=== PATIENT | male | born 2000 | race Caucasian/White ===

== ENCOUNTER 2022-11-05 11:19 | Emergency (ER) | payer OTHER, SELFPAY ==
[2022-11-05 11:21] VITALS: BP 137/88; PULSE 78; RESP 16; TEMP 36.7; O2SAT 100
[2022-11-05 11:49] LABS: Basophils Absolute Auto 0.1 K/mm3 (0.0-0.1); Basophils Percent Auto 0.9 % (0.2-1.2); Eosinophils Absolute Auto 0.1 K/mm3 (0-0.3); Eosinophils Percent Auto 1.1 % (0-4.4); Hematocrit 43.3 % (42.0-52.0); Hemoglobin 14.8 g/dL (14.0-18.0); Immature Granulocyte Absolute 0.01 K/mm3 (0.00-0.031); Immature Granulocyte Percent A 0.2 % (0-0.5); Lymphocytes Absolute Auto 1.83 K/mm3 (0.9-3.2); Lymphocytes Percent Auto 33.3 % (18.3-44.2); Mean Corpuscular HGB Conc 34.2 g/dl (32-36); Mean Corpuscular Hemoglobin 28.8 pg (26-34); Mean Corpuscular Volume 84.2 fl (80-100); Mean Platelet Volume 10.9 fl (7.4-10.4); Monocytes Absolute Auto 0.5 K/mm3 (0.1-0.6); Monocytes Percent Auto 9.7 % (2.6-8.5); Neutrophils Percent Auto 54.8 % (45.5-73.1); Platelet Count Result 151 k/mm3 (150-375); Red Blood Count 5.14 M/mm3 (4.6-6.20); Red Cell Distribution Width 11.9 % (11.5-14.5); White Blood Count 5.5 K/mm3 (4.5-10.0)
[2022-11-05 11:50] LABS: Appearance Urine Clear (Clear); Bilirubin Urine Negative (Negative); Blood Urine Negative (Negative); Color Urine Yellow (Yellow); Glucose Urine UA Negative (Negative); Ketones Urine Trace mg/dL (Negative); Leukocyte Esterase Ur Negative LEU/UL (Negative); Nitrate Urine Negative (Negative); Protein Urine Negative (Negative); Specific Grav Ur 1.031 (1.001-1.035)
[2022-11-05 11:58] LABS: Add Urine Microscopic? NO; Alanine Aminotransferase 20 U/L (6-50); Albumin Level 4.8 g/dL (3.5-5.1); Alkaline Phosphatase 46 U/L (38-126); Anion Gap 10 mmol/L (8-16); Aspartate Amino Transferase 21 U/L (17-59); Blood Urea Nitrogen 19 mg/dL (9-20); Calcium 9.4 mg/dL (8.4-10.2); Carbon Dioxide 26 mmol/L (22-30); Chloride 106 mmol/L (98-107); Estimated CRCL calculation 110 ml/min; Estimated Glomerular Filt Rate > 60; Glucose 99 mg/dL (65-110); Lipase 64 U/L (23-300); Potassium 3.8 mmol/L (3.4-5.0); Sodium 142 mmol/L (137-145)
[2022-11-05 12:17] VITALS: BP 118/67; PULSE 68; RESP 15; O2SAT 100
--- NOTE | 2022-11-05 12:54 | ED.ABDPAIN ---
HPI - Abdominal Pain General Chief Complaint: Abdominal Pain Stated Complaint: abdominal pain Time Seen by Provider: 11/05/22 11:44 Source: patient Mode of arrival: ambulatory Limitations: no limitations History of Present Illness HPI narrative: Patient is a 22-year-old male who presents to the ED with report of digestion issues. Patient reports having chronic issues with his digestion for the last 1 year intermittently. He states he has intermittent episodes of lower abdominal cramping, diarrhea, frequent bowel movements, BMs immediately after eating. He states the episodes typically last for a week or so at a time however the current episode has been ongoing for the last 1 month. He states the symptoms seem to be worse with starchy foods, high-fiber foods, beans, milk. He has been seen at previous urgent cares for this but has not followed up with primary GI. Denies any fever, nausea, vomiting, urinary symptoms, rectal bleeding, melena. He has not tried anything for his symptoms. No personal or family history of IBD. He has never had a colonoscopy. Related Data Allergies Allergy/AdvReac Type Severity Reaction Status Date / Time No Known Allergies Allergy Unverified 11/05/22 11:20 Review of Systems Review of Systems: CONSTITUTIONAL: Denies fever, chills, or sweats. CARDIOVASCULAR: Denies chest pain, palpitations, or edema. RESPIRATORY: Denies cough or dyspnea. GASTROINTESTINAL: See HPI. GENITOURINARY: Denies dysuria or hematuria. SKIN: Denies rash or itching. MUSCULOSKELETAL: Denies back pain, joint pain, or myalgia. All systems reviewed & are unremarkable except as noted in HPI and below PMFSH Past Medical History Medical History (Updated 11/05/22 @ 18:02 by Erna Phelps PA-C) No pertinent past medical history Surgical History Surgical History (Updated 11/05/22 @ 18:02 by Erna Phelps PA-C) No pertinent past surgical history Social History Social History (Updated 11/05/22 @ 18:02 by Erna Phelps PA-C) Smoking status: Never smoker Exam Narrative: GENERAL: Well appearing, thin, non-toxic, in no acute distress. HEAD: Normocephalic, atraumatic. NECK: Supple. No adenopathy, no masses. RESPIRATORY: Airway patent, respirations nonlabored. Clear to auscultation bilaterally, no rales, rhonchi, wheezing. CARDIOVASCULAR: Regular rate and rhythm without murmurs, rubs, or gallops. Radial pulses 2+ and equal bilaterally. ABDOMINAL: Soft, moderate tenderness throughout lower abdomen, worse in right lower quadrant, mild tenderness in left upper quadrant, nondistended, no hepatosplenomegaly. Normoactive BS. MUSCULOSKELETAL: Moves all extremities. Strength/ROM intact without gross deformities. SKIN: Warm, dry, normal color. No rashes. NEURO: A&O X3. Speech clear. Cranial nerves II-XII grossly intact. Steady gait. No ataxic movements. PSYCHIATRIC: Appropriate mood and affect. Normal interaction. Course Vital Signs Vital signs: Vital Signs Temperature 98.0 F 11/05/22 11:21 Pulse Rate 78 11/05/22 11:21 Respiratory Rate 16 11/05/22 11:21 Blood Pressure 137/88 11/05/22 11:21 Pulse Oximetry 100 11/05/22 11:21 Oxygen Delivery Room Air 11/05/22 11:21 Temperature 98.0 F 11/05/22 11:21 Pulse Rate 68 11/05/22 12:17 Respiratory Rate 15 11/05/22 12:17 Blood Pressure 118/67 11/05/22 12:17 Pulse Oximetry 100 11/05/22 12:17 Oxygen Delivery Room Air 11/05/22 11:21 MDM - Abdominal Pain MDM Narrative Medical decision making narrative: Patient presented to ED with several month history of digestive issues. Reporting intermittent lower abdominal pain, diarrhea. Vital stable upon arrival. Basic blood work unremarkable. Urine with trace ketones. I discussed starting IV fluids, however patient refused this. Patient did have moderate lower abdominal tenderness, particularly in right lower quadrant, on exam. Discussed obtaining a CT scan to
== END 2022-11-05 13:49 | disposition left against medical advice (07) ==
PROVIDERS: Emergency Medicine; Emergency Provider Physician Assistant
DX: R19.7 Diarrhea, unspecified (principal); R10.30 Lower abdominal pain, unspecified
CPT/HCPCS: 36415; 80053; 81003; 83690; 85025; 99283